=== PATIENT | male | born 1945 ===

== ENCOUNTER 2018-12-10 13:47 | Day surgery (SDC) | payer MEDICARE, OTHER ==
[~2018-12-10] VITALS: Ht 180.3 cm; Wt 101.6 kg
[~2018-12-10 13:47] MED LIST: ASPI81CH PO; Aspirin EC81 MG PO; CIPR500 PO; FISH1000 PO; GABA300; Hair, Skin & N1 EACH PO; IBUP800 PO; LEVFLO250 PO; LEVFLO500 PO; METF500 PO; MULTI VITAMIN1 EACH PO; Neurontin 300300 MG PO; Norco 5-325 Ta1 EACH PO; RAMI5; RAMI5 PO; Ramipril10 MG PO; SACC250C PO; SILD50TA; SIMV5 PO; TERB250 PO; VARE1 PO
== END 2018-12-10 15:51 | disposition home or self-care (01) ==
LOC: ORSCSDS 13:47
PROVIDERS: Surgery
PROC: 0DBM8ZX Excision of Descending Colon, Via Natural or Artificial Opening Endoscopic, Diagnostic (ICD-10-PCS; principal; 2018-12-10 15:00)
DX: Z12.11 Encounter for screening for malignant neoplasm of colon (principal); D12.4 Benign neoplasm of descending colon; Z86.010 Personal history of colon polyps; I10 Essential (primary) hypertension; E78.5 Hyperlipidemia, unspecified; E11.40 Type 2 diabetes mellitus with diabetic neuropathy, unspecified; Z79.84 Long term (current) use of oral hypoglycemic drugs; Z79.899 Other long term (current) drug therapy; F17.210 Nicotine dependence, cigarettes, uncomplicated
CPT/HCPCS: 82947; 88305; J2704; J7120

== ENCOUNTER → 2019-11-04 | Outpatient (CLI) | payer MEDICARE, OTHER | END | disposition home or self-care (01) | LOC: LAB 15:20 → LAB SHORT 15:20 | DX: T81.49XA Infection following a procedure, other surgical site, initial encounter (principal) | CPT/HCPCS: 87070; 87075; 87077; 87186; 87205 ==

== ENCOUNTER → 2020-10-21 | Outpatient (CLI) | payer MEDICARE, OTHER ==
[~2020-10-21] MED LIST changes: +CYCL10 PO; +SILDENAFIL CITR20 M1 PO
== END | disposition home or self-care (01) ==
LOC: LAB SHORT 10:30 → LAB 10:30
DX: N30.01 Acute cystitis with hematuria (principal); N45.3 Epididymo-orchitis; R35.0 Frequency of micturition
CPT/HCPCS: 87077; 87086; 87186

== ENCOUNTER 2021-05-20 12:22 | Emergency (ER) | payer MEDICARE, OTHER ==
[~2021-05-20] VITALS: Ht 180.3 cm; Wt 102.1 kg
[2021-05-20 13:16] LABS: BASOPHILS ABSOLUTE AUTO 0.03 K/mm3 (0.00-0.23); BASOPHILS PERCENT AUTO 0 % (0-2); EOSINOPHILS ABSOLUTE AUTO 0.01 K/mm3 (0.00-0.68); EOSINOPHILS PERCENT AUTO 0 % (0-6); Hematocrit 44.3 % (37.0-53.0); Hemoglobin 15.2 g/dL (13.5-17.5); IMMATURE GRAN ABSOLUTE AUTO 0.08 K/mm3 (0.00-0.10); IMMATURE GRAN PERCENT AUTO 1 % (0-1); LYMPHOCYTES ABSOLUTE AUTO 1.37 K/mm3 (0.84-5.20); LYMPHOCYTES PERCENT AUTO 8 % (21-46); MONOCYTES ABSOLUTE AUTO 1.38 K/mm3 (0.16-1.47); MONOCYTES PERCENT AUTO 8 % (4-13); Mean Corpuscular HGB Conc 34.3 g/dL (31.5-36.5); Mean Corpuscular Volume 90 fL (80-100); Mean Platelet Volume 9.6 fL (9.1-12.4); NEUTROPHILS ABSOLUTE AUTO 14.45 K/mm3 (1.96-9.15); NEUTROPHILS PERCENT AUTO 83 % (41-73); Platelet Count 165 K/mm3 (150-400); RDW Coefficient Variation 12.1 % (11.7-14.2); RDW Standard Deviation 39.7 fL (35.1-46.3); Red Blood Cell Count 4.91 M/mm3 (4.30-5.90); White Blood Cell Count 17.32 K/mm3 (4.00-11.30)
[2021-05-20 13:22] LABS: Source, Urine Clean Catch
[2021-05-20 13:28] LABS: Appearance, Urine Cloudy (Clear); Bilirubin, Urine Neg (Neg); Blood, Urine 5+ (Neg); Color, Urine Amber (P-Yellow); Glucose Qualitative, Urine Neg (Neg); Ketones, Urine Neg (Neg); Leukocyte Esterase, Urine 3+ (Neg); Nitrite, Urine Neg (Neg); Protein, Urine 2+ (Neg); Specific Gravity, Urine 1.025 (1.003-1.022); Urobilinogen, Urine 1+ (Normal)
[2021-05-20 13:36] LABS: Alanine Aminotransfer (ALT/SGP 36 U/L (12-78); Albumin, Blood 3.8 g/dL (3.4-5.0); Albumin/Globulin Ratio 0.9 (0.8-1.8); Alk Phos 75 U/L (50-136); Anion Gap 5 mmol/L (6-16); Aspartate Aminotrans (AST/SGOT 20 U/L (12-37); Bilirubin, Total 1.3 mg/dL (0.1-1.0); Blood Urea Nitrogen 19 mg/dL (8-24); Bun/Creatinine Ratio 18.8 (12.0-20.0); CO2, Blood 29 mmol/L (21-32); Calcium, Blood 9.4 mg/dL (8.5-10.1); Chloride, Blood 101 mmol/L (98-108); Creatinine, Blood 1.01 mg/dL (0.60-1.20); Globulin, Blood 4.1 g/dL (2.2-4.0); Glomerular Filtration Rate >60 (60-); Glucose, Blood 182 mg/dL (70-99); Potassium, Blood 4.3 mmol/L (3.5-5.5); Sodium, Blood 135 mmol/L (136-145); Total Protein, Blood 7.9 g/dL (6.4-8.2)
[2021-05-20 13:46] LABS: Bacteria Rare /hpf; Mucus Mod (0-Heavy); Squamous Epithelial Cells Rare /hpf (Few); White Blood Cells, Urine 50-100 /hpf (0-5)
[2021-05-20] MEDS ORDERED: Levaquin500 MG PO (14:33)
== END 2021-05-20 15:35 | disposition home or self-care (01) ==
LOC: ER 12:22
PROVIDERS: Physician Assistant
DX: N45.1 Epididymitis (principal); D72.829 Elevated white blood cell count, unspecified; I10 Essential (primary) hypertension; E11.9 Type 2 diabetes mellitus without complications; E78.5 Hyperlipidemia, unspecified; F17.210 Nicotine dependence, cigarettes, uncomplicated; Z79.899 Other long term (current) drug therapy; Z79.82 Long term (current) use of aspirin; Z79.84 Long term (current) use of oral hypoglycemic drugs
CPT/HCPCS: 36415; 76870; 80053; 81001; 85025; 87077; 87086; 87186; 96365; 99284-25; J1956

== ENCOUNTER → 2022-10-21 | Outpatient (CLI) | payer MEDICARE, OTHER ==
[~2022-10-21] MED LIST changes: +Levaquin500 MG PO
== END | disposition home or self-care (01) ==
LOC: LAB 12:58 → LAB SHORT 12:58
DX: R30.0 Dysuria (principal); M54.50 Low back pain, unspecified
CPT/HCPCS: 87086